=== PATIENT | male | born 1970 | race Caucasian/White ===

== ENCOUNTER → 2022-03-16 10:43 | Outpatient (CLI) | payer OTHER, SELFPAY ==
[2022-03-16 19:47] LABS: Add Manual Diff / Slide Review NO; Basophils Absolute Auto 0 /uL (0-100); Basophils Percent Auto 0.9 % (0-2); Eosinophils Absolute Auto 300 /uL (0-450); Lymphocytes Absolute Auto 1900 /uL (1100-4500); Lymphocytes Percent Auto 36.3 % (25-40); Mean Corpuscular HGB Conc 33.4 % (30-36); Mean Corpuscular Hemoglobin 28.2 PG (26-34); Mean Corpuscular Volume 84.4 fL (80-100); Monocytes Absolute Auto 400 /uL (0-900); Monocytes Percent Auto 8.6 % (3-14); Neutrophils Absolute Auto 2500 /uL (1500-7000); Neutrophils Percent Auto 48.2 % (50-75); Platelet Count 208 X10^3/uL (150-400); Red Blood Cell Count 4.98 X10^6/uL (4.5-5.9); Red Cell Distribution Width 13.2 % (11.6-14.8); White Blood Cell Count 5.2 X10^3/uL (4.5-11.0)
[2022-03-16 19:48] LABS: Blood Urea Nitrogen 15 mg/dL (9-20); Calcium 9.1 mg/dL (8.4-10.2); Carbon Dioxide 25 mmol/L (22-32); Chloride 105 mmol/L (98-107); Cholesterol 227 mg/dL (140-199); Estimated Glomerular Filt Rate > 60 mL/min (>60); Glucose 98 mg/dL (70-100); HDL Cholesterol 47 mg/dL (40-60); HEMOLYSIS < 15 (0-50); LDL Cholesterol Calculated 158 mg/dL (<100); Potassium 4.2 mmol/L (3.4-5.1); Sodium 140 mmol/L (137-145); Triglycerides 109 mg/dL (35-150)
== END ==
PROVIDERS: PCP Family Medicine; Visit Provider Family Medicine
DX: Z13.1 Encounter for screening for diabetes mellitus (principal); Z13.220 Encounter for screening for lipoid disorders; Z13.6 Encounter for screening for cardiovascular disorders
CPT/HCPCS: 80048; 80061; 85025

== ENCOUNTER 2022-11-30 09:16 | Day surgery (SDC) | payer OTHER, SELFPAY ==
[2022-11-30 09:48] VITALS: BP 141/76; PULSE 56; RESP 16; TEMP 36.1; O2SAT 96; BMI 27.0
[2022-11-30] MEDS: LACTATED RINGERS 1,000 ML 42 ML IV (10:03)
--- NOTE | 2022-11-30 11:01 | P.HP_ITS ---
History of Present Illness History of Present Illness Date Patient Seen: 11/30/22 Time Patient Seen: 11:01 Chief complaint: SDC Narrative: Bailey is a 52-year-old man who is here for a screening colonoscopy. He is never had a colonoscopy before. He has no known family history colon cancer. [facility] Medical History (Updated 11/30/22 @ 11:01 by Derek Hui MD) Encounter for general adult medical examination without abnormal findings Screening for diabetes mellitus Screening for lipid disorders Social History household members: children Smoking Status: Current every day smoker alcohol intake: current Meds Home Medications and Allergies Home Medications Medication Instructions Recorded Confirmed Type multivitamin 1 tab PO DAILY 11/30/22 11/30/22 History Allergies Allergy/AdvReac Type Severity Reaction Status Date / Time No Known Drug Allergies Allergy Verified 11/30/22 09:47 Exam Vital Signs (past 8 hours): - 11/30/22 09:48 Temperature 97 F L Pulse Rate 56 L Respiratory Rate 16 Blood Pressure 141/76 H Pulse Oximetry 96 Oxygen Delivery Method Room Air Oxygen Delivery Method Room Air Const General: healthy appearing Assessment & Plan Assessment and plan (1) Colon cancer screening: Status: Acute Plan Tony is a 52-year-old man who is here for a colonoscopy for colon cancer screening. We reviewed the risks and benefits and he would like to proceed.
--- NOTE | 2022-11-30 12:04 | PM.OP.COLON ---
Operative Date/Time/Diagnoses Date of procedure: 11/30/22 Time of procedure: 12:04 Pre-op diagnosis: Colon cancer screening Post-op diagnosis: same Procedure & Clinicians Study performed: Colonoscopy Same procedure as scheduled: Yes Surgeon: Derek Hui Procedure Notes Procedure in detail: Surgeon: Derek Hui MD Anesthesia: Edwar Pike CRNA Procedure: The patient was brought to the endoscopy suite, placed in left lateral decubitus position. The patient was connected to monitoring devices. A time-out was performed. Sedation was administered. Once the patient was adequately sedated, a digital rectal exam was performed and was normal. The scope was then inserted and advanced to the cecum where the appendiceal orifice was identified and photographed. The scope was then slowly withdrawn over greater than 6 minutes. The mucosa was thoroughly inspected. No abnormalities were identified. The scope was retroflexed in the rectum. No abnormalities were identified. The scope was straightened and removed. The patient was awakened and brought to recovery. Scope withdrawal time: 10 minutes Sedation time: 15 minutes EBL: 0 Findings: Normal colon Post-procedure Recommendations: Colonoscopy in 10 years Disposition: PACU
[2022-11-30 12:05] VITALS: BP 109/72; PULSE 52; RESP 14; TEMP 36.1; O2SAT 96
[2022-11-30 12:11] VITALS: BP 104/69; PULSE 50; RESP 13; O2SAT 96
[2022-11-30 12:16] VITALS: BP 156/83; PULSE 58; RESP 20; O2SAT 97
[2022-11-30 12:20] VITALS: BP 85/60; PULSE 49; RESP 16; O2SAT 96
== END 2022-11-30 12:22 | disposition home or self-care (01) ==
PROVIDERS: PCP Family Medicine; Referring Provider Surgery; Visit Provider Surgery
PROC: 0DJD8ZZ Inspection of Lower Intestinal Tract, Via Natural or Artificial Opening Endoscopic (ICD-10-PCS; CPT 45378; principal; 2022-11-30 10:30)
DX: Z12.11 Encounter for screening for malignant neoplasm of colon (principal)
CPT/HCPCS: 45378; J2704